=== PATIENT | female | born 1955 | race Caucasian/White ===

== ENCOUNTER 2017-09-28 20:35 | Emergency (ER) | payer OTHER, BC ==
[2017-09-28] MEDS ORDERED: Ketorolac 30 MG/ML SDV IM ONE (21:05)
[2017-09-28] MEDS ORDERED: Acetaminophen/HYDROcodone 325-5 MG Tab PO ONE (21:34)
[2017-09-28 21:49] VITALS: BP 115/63
--- NOTE | 2017-09-29 11:04 | CR ---
INDICATION: Pain, sudden onset, pulling sensation around patella, felt a twinge while walking. RIGHT KNEE: Three views of the right knee were obtained and revealed a tiny calcific or bony density along the lateral aspect of the patellofemoral joint. The possibility of a tiny avulsion chip fracture fragment would be a consideration with this appearance, although the finding could be on the basis of dystrophic soft tissue calcification from a previous injury - correlate clinically. There are mild hypertrophic changes off the medial femur and tibia and off the intercondylar spines. Very minimal hypertrophic change is noted laterally off the femur and tibia also. As visualized, femorotibial joint spaces appear to be fairly well maintained, as are the patellofemoral joint spaces. IMPRESSION: Cannot exclude a tiny avulsion chip fracture fragment off the patella, although it may simply represent a dystrophic calcification from a previous injury along the lateral aspect of the patellofemoral joint. Depending upon clinical necessity, additional examination could be obtained, such as MRI. CLIFD
--- NOTE | 2017-10-01 07:52 | ER ---
DATE SEEN: 09/28/2017 TIME SEEN: The patient was seen at 2100 hours. 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 She felt a pop in her leg. She walked around, was active throughout the day, and finished her shift. She went home and slept for 2 hours, from 1600 hours to 1800 hours. She woke at 1800 hours, had terrible pain in her right knee, 8/10 in intensity with any movement, but when she does not move her knee, it is 2/10. PAST MEDICAL HISTORY: Cholecystectomy, diabetes, insulin dependent, dyslipidemia, GERD, and status post vaginal repair. REVIEW OF SYSTEMS: Otherwise negative. SOCIAL HISTORY: She is an active worker at the [employer]. She is attended by her at the time of examination. PHYSICAL EXAMINATION: VITAL SIGNS: Temperature is 36.2, pulse 72, respirations 14, blood pressure 118/69, oxygen saturation 100%, 66.6 kg, BMI is 26.9 kg/m2. CONSTITUTIONAL: Alert woman, in mild distress. She is very stoic. Very articulate and pleasant. She has good eye contact. Well dressed. She is attended by her . HEENT: PERRLA intact. NECK: Without abnormality. LUNGS: Clear without rales, rhonchi, or wheezes. HEART: S1, S2. No irregular rate and rhythm. ABDOMEN: Soft. No guarding. No abdominal discomfort. EXTREMITIES: Left lower extremity negative. No pedal edema bilaterally. Dorsalis pedis intact. Posterior tibialis intact bilaterally. Right knee inspection, mild effusion noted medial and slightly superior to the joint line and more anterior and medial, not just medial. Mildly tender. No patellar grind. Straightening of the leg and bending the knee causes pain and discomfort. Drawer sign absent. I did not perform a Guilherme maneuver. Right medial joint line mild tenderness, less than I anticipated. Collateral ligament stable. No instability noted, but with lateral stress causing stress on the medial ligaments, she has [id number] discomfort. DIAGNOSTIC STUDIES: X-ray does not reveal any abnormality except for minimal joint spurs, no effusion. There appears to be decreased joint space height between the medial condyle and the medial tibial plateau. ASSESSMENT: 1. Rule out internal knee derangement. 2. Right knee pain. 3. Mild osteoarthritis. 4. No evidence for rheumatoid arthritis. No dactylitis or edema of the fingers. 5. Very likely ligamentous strain with possible internal derangement. PLAN: Gradually progress to increased activity as tolerated. Use 6-inch [place]. We advised her that we could put a leg brace on, but it would immobilize the leg, and when she sees the doctor in followup, she would not only have knee pain, but then she would have some stiff knee, and we prefer to have her maintain some mobility of the knee. Use ice and she has Percocet to take 1/2 tab q.4-6 hours p.r.n. pain. She is worried about the narcotics because these make her goofy, perhaps this will be less of a problem if she takes half a tablet. She will use 1,000 mg of Tylenol plus 600 mg ibuprofen together every 6 hours for pain and discomfort. Elevate, ice, gradually progressively increase activity as tolerated. Follow up with doctor in 3-4 days. She will be off work until cleared; otherwise, see a doctor/healthcare provider on 10/01/2017. /[id number] SERGIO/GUI
== END 2017-09-28 21:47 | disposition home or self-care (01) ==
LOC: FB.ED 20:35
DX: M25.461 Effusion, right knee (principal); M19.90 Unspecified osteoarthritis, unspecified site; E11.9 Type 2 diabetes mellitus without complications; E78.5 Hyperlipidemia, unspecified; K21.9 Gastro-esophageal reflux disease without esophagitis; Z90.49 Acquired absence of other specified parts of digestive tract
CPT/HCPCS: 73562; 96372; 99283; A9270; J1885